=== PATIENT | female | born 1965 | race Caucasian/White ===

== ENCOUNTER 2018-08-31 15:44 | Emergency (ER) | payer OTHER, BC ==
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
--- NOTE | 2018-08-31 17:50 | XR ---
EXAMINATION: XR chest 2V DATE AND TIME: 08/31/2018 4:57 PM CLINICAL INDICATION: PHH; Pain TECHNIQUE: Departmental protocol COMPARISON: None FINDINGS: The lungs are clear. The pleural spaces are negative. The cardiac silhouette is not enlarged. The remainder of the mediastinal silhouette is unremarkable. The skeletal structures and soft tissues are negative for acute findings. IMPRESSION: NO ACUTE PROCESS.
--- NOTE | 2018-08-31 17:51 | XR ---
PROCEDURE: XR thoracic spine complete - 3V DATE AND TIME: 08/31/2018 4:57 PM CLINICAL INDICATION: PHH; back pain TECHNIQUE: Department protocol COMPARISON: None FINDINGS: There is no fracture or malalignment. The soft tissues are unremarkable. IMPRESSION: NO ACUTE PROCESS.
--- NOTE | 2018-08-31 17:53 | XR ---
PROCEDURE: XR lumbar spine - 4V DATE AND TIME: 08/31/2018 4:57 PM CLINICAL INDICATION: PHH; Pain TECHNIQUE: Department protocol COMPARISON: None FINDINGS: There is no fracture. There is 1 cm anterior listhesis of L4 with respect to L5, presumably degenerative facet etiology. Th ere are multilevel mid and lower lumbar facet osteoarthritis changes, moderate and marked in degree a nd mild multilevel degenerative disc changes are noted. The soft tissues are unremarkable. IMPRESSION: NO ACUTE PROCESS.
[2018-08-31] MEDS ORDERED: KETOROLAC 60 MG/2 ML VIAL IM STA (18:01)
[2018-08-31 18:27] VITALS: BP 136/81; PULSE 69; RESP 18; TEMP 98.6
== END 2018-08-31 18:25 | disposition home or self-care (01) ==
LOC: EC 15:44
DX: R51 Headache (principal); R29.898 Other symptoms and signs involving the musculoskeletal system; V53.5XXA Driver of pick-up truck or van injured in collision with car, pick-up truck or van in traffic accident, initial encounter; Y92.410 Unspecified street and highway as the place of occurrence of the external cause
CPT/HCPCS: 72072; 72100; 71046; 72125; 70450; 99284; 96372; L0120; J1885